=== PATIENT | female | born 1995 | race Caucasian/White ===

== ENCOUNTER 2017-11-30 17:00 | Inpatient (IN) | payer BC ==
[2017-11-30 18:12] VITALS: BMI 29.2
[2017-11-30 18:52] LABS: BASO % 0.8 % (0-2.0); EOS % 0.6 % (0-4.5); HEMATOCRIT 24.8 % (32.4-45.2); HEMOGLOBIN 8.1 GM/dL (10.7-15.3); LYMPH % 19.6 % (8-40); MCH 22.1 pg (25.7-33.7); MCHC 32.7 g/dl (32.0-36.0); MEAN CELL VOLUME 67.5 fl (80-96); MEAN PLT VOLUME 8.3 fl (7.5-11.1); MONO % 6.6 % (3.8-10.2); NEUT % 72.4 % (42.8-82.8); PLATELET COUNT 328 K/MM3 (134-434); RBC 3.67 M/mm3 (3.60-5.2); RDW 17.6 % (11.6-15.6); WHITE BLOOD COUNT 9.3 K/mm3 (4.0-10.0)
[2017-11-30 19:09] LABS: INR 0.96 (0.82-1.09); PROTHROMBIN TIME (PATIENT) 10.9 SEC (9.7-13.0)
[2017-11-30 19:12] LABS: ACTIVATED PTT 24.2 SECONDS (25.2-36.5)
[2017-11-30 19:32] LABS: ANION GAP 9 (8-16); BLOOD UREA NITROGEN 7 mg/dL (7-18); CALCIUM 8.5 mg/dL (8.5-10.1); CHLORIDE 109 mmol/L (98-107); CO2 24 mmol/L (21-32); CREATININE 0.4 mg/dL (0.55-1.02); GLUCOSE,RANDOM 95 mg/dL (74-106); POTASSIUM 3.9 mmol/L (3.5-5.1); SODIUM 142 mmol/L (136-145)
[2017-11-30] MEDS: DEXTROSE 5%-LACTATED RINGERS 1,000 ML IV SCH (20:15)
--- NOTE | 2017-11-30 20:20 | HP ---
Admitting History and Physical - Admission Chief Complaint: Labor pain History of Present Illness: 22 yo @ 39 weeks gestation, EDC 12/03/17, presents to L&D c/o labor pain. Upon admission she was 1cm dilated. Decision made for induction of labor with Cervidil. History Source: Patient Limitations to Obtaining History: No Limitations - Past Medical History ...: Yes ...: 3 ...Para: 1 - Past Surgical History Past Surgical History: Yes: None - Smoking History Smoking history: Never smoked Have you smoked in the past 12 months: No - Alcohol/Substance Use Hx Alcohol Use: No History of Substance Use: reports: None - Social History ADL: Independent History of Recent Travel: No Home Medications - Allergies Allergies/Adverse Reactions: Allergies Allergy/AdvReac Type Severity Reaction Status Date / Time No Known Allergies Allergy Verified 11/30/17 01:52 - Home Medications Home Medications: Ambulatory Orders Vit No.130/Iron/Folic [ Tablet] 1 each PO DAILY 07/27/14 Family Disease History - Family Disease History Family History: Unremarkable Review of Systems - Review of Systems Constitutional: reports: No Symptoms Eyes: reports: No Symptoms HENT: reports: No Symptoms Neck: reports: No Symptoms Cardiovascular: reports: No Symptoms Respiratory: reports: No Symptoms Gastrointestinal: reports: No Symptoms Genitourinary: reports: Pain Breasts: reports: No Symptoms Reported Musculoskeletal: reports: No Symptoms Neurological: reports: No Symptoms Endocrine: reports: No Symptoms Psychiatric: reports: No Symptoms Pain Intensity: 3 Physical Examination Vital Signs: Vital Signs Temperature 98.2 F 11/30/17 19:45 Pulse Rate 87 11/30/17 19:45 Respiratory Rate 20 11/30/17 19:45 Blood Pressure 102/61 11/30/17 19:45 O2 Sat by Pulse Oximetry (%) Constitutional: Yes: Well Nourished Eyes: Yes: Conjunctiva Clear HENT: Yes: Atraumatic Neck: Yes: Supple Cardiovascular: Yes: Regular Rate and Rhythm Respiratory: Yes: Regular Gastrointestinal: Yes: Normal Bowel Sounds Musculoskeletal: Yes: WNL Neurological: Yes: Alert, Oriented ...Motor Strength: WNL Psychiatric: Yes: Alert, Oriented Labs: CBC, BMP 11/30/17 18:28 11/30/17 18:28 Problem List - Problems (1) 39 weeks gestation of Code(s): Z3A.39 - 39 WEEKS GESTATION OF Assessment/Plan 39 weeks gestation Labor pain Umbilical hernia Admit to L&D Cervidil induction
[2017-11-30] MEDS ORDERED: DINOPROSTONE 10 MG VAGINAL SUPPOSITORY VG ONE (21:00)
[2017-12-01] MEDS: DEXTROSE 5%-LACTATED RINGERS 1,000 ML IV SCH ×2 (04:00→22:51)
--- NOTE | 2017-12-01 10:42 | PN ---
Progress Note (short form) - Note Progress Note: Patient seen and evaluated, she c/o mild discomfort. FHR : Reassuring [place] : Irregular contractions VE : 2 /60/ -2 Intact A/P : Status post cervidil induction Start Pitocin Analgesia as needed Problem List - Problems (1) 39 weeks gestation of Code(s): Z3A.39 - 39 WEEKS GESTATION OF
[2017-12-01] MEDS ORDERED: OXYTOCIN 30 UNITS in 0.9% NS 30 UNIT/500 ML INFUS.BAG IVPB SCH (10:45)
[2017-12-01] MEDS ORDERED: BUTORPHANOL TARTRATE 1 MG/ML VIAL IVPUSH PRN (10:46)
[2017-12-01] MEDS: ELECTROLYTE-148 SOLN 1,000 ML IV SCH ×2 (19:00→22:52)
[2017-12-01] MEDS ORDERED: BUPIVACAINE HCL/PF 0.25% (2.5MG/ML) 10 ML VIAL ONE (19:19)
[2017-12-01] MEDS ORDERED: NALOXONE HCL 0.4 MG/ML VIAL IVPUSH PRN (19:42)
[2017-12-01] MEDS ORDERED: FENTANYL/BUPIVACAINE/NS/PF - PCEA - 50 ML DISP.SYRIN EP SCH (19:45)
[2017-12-01] MEDS ORDERED: LIDOCAINE HCL 1% PRESERVATIVE FREE - 30ML VIAL ONE (21:09)
[2017-12-01] MEDS ORDERED: OXYTOCIN 20 UNITS in 0.9% NS 20 UNIT/1,000 ML INFUS.BAG IV ONE (21:09)
[2017-12-01] MEDS ORDERED: BISACODYL 10 MG SUPP.RECT RC PRN (22:22)
[2017-12-01] MEDS ORDERED: WITCH HAZEL 50% (TUCKS) 40 PAD/JAR PAD TP PRN (22:22)
[2017-12-01] MEDS ORDERED: METHYLERGONOVINE MALEATE 0.2 MG/1 ML AMP IM PRN (22:22)
[2017-12-01] MEDS ORDERED: BENZOCAINE 28 GM HEMORRHOIDAL OINTMENT TP PRN (22:22)
[2017-12-01] MEDS ORDERED: BENZOCAINE 20% 57 GM BOTTLE TP PRN (22:22)
--- NOTE | 2017-12-01 22:25 | PN ---
Delivery - Delivery Vaginal Delivery: Spontaneous Type of Anesthesia: Epidural Episiotomy/Laceration: 1st degree EBL (cc): 250 Delivery, Single - [place] Feeding Plan Initial Plan: Exclusive throughout hospitalization Remarks - Remarks Remarks: Normal spontaneous vaginal delivery of a live girl over first degree laceration. Nose / Oropharynx suctioned @ perineum. Cord clamped and cut. Placenta expelled spontaneously intact. Laceration repaired with 2.0 Biosyn. Mother in stable condition.
[2017-12-01] MEDS ORDERED: OXYTOCIN 20 UNITS in 0.9% NS 20 UNIT/1,000 ML INFUS.BAG IV SCH (22:30)
[2017-12-02] MEDS: IBUPROFEN 600 MG TABLET (FP) PO PRN ×3 (06:23→20:56)
[2017-12-02] MEDS: ACETAMINOPHEN 325 MG TABLET (FP) PO PRN ×3 (06:23→20:55)
[2017-12-02 07:33] LABS: BASO % 0.2 % (0-2.0); EOS % 0.4 % (0-4.5); HEMATOCRIT 26.6 % (32.4-45.2); HEMOGLOBIN 8.7 GM/dL (10.7-15.3); LYMPH % 16.9 % (8-40); MCH 21.8 pg (25.7-33.7); MCHC 32.6 g/dl (32.0-36.0); MEAN CELL VOLUME 66.9 fl (80-96); MONO % 7.8 % (3.8-10.2); NEUT % 74.7 % (42.8-82.8); PLATELET COUNT 256 K/MM3 (134-434); RBC 3.98 M/mm3 (3.60-5.2); RDW 17.4 % (11.6-15.6); WHITE BLOOD COUNT 12.1 K/mm3 (4.0-10.0)
[2017-12-02] MEDS: FERROUS SO4 325 MG TABLET (FP) PO SCH ×2 (09:13→21:03)
[2017-12-02] MEDS: PRENATAL VITAMINS W/ FOLIC ACID TABLET (FP) PO SCH (09:13)
[2017-12-02 09:53] LABS: ANISOCYTOSIS 1+; MACROCYTOSIS 1+; OVALOCYTE 1+
--- NOTE | 2017-12-02 15:36 | PN ---
Post Progress Note - Subjective Subjective: 22 yo Para 2 status post vaginal delivery, seen and evaluated. Doing well. Post Day: 1 Type of Delivery: Vital Signs: Vital Signs Temperature 98.4 F 12/02/17 14:00 Pulse Rate 70 12/02/17 14:00 Respiratory Rate 20 12/02/17 14:00 Blood Pressure 100/52 12/02/17 14:00 O2 Sat by Pulse Oximetry (%) 100 12/01/17 23:15 Breast Exam: Yes: Soft Uterus: Yes: Fundus Firm Abdomen/GI: Yes: Abdomen soft Lochia: Yes: Rubra Lochia, amount: Moderate Extremities: Yes: Calves non-tender Perineum: Yes: Laceration (Healing) Activity: Ambulating - Labs Labs: CBC WBC 12.1 K/mm3 (4.0-10.0) H 12/02/17 07:00 RBC 3.98 M/mm3 (3.60-5.2) 12/02/17 07:00 Hgb 8.7 GM/dL (10.7-15.3) L 12/02/17 07:00 Hct 26.6 % (32.4-45.2) L 12/02/17 07:00 MCV 66.9 fl (80-96) L 12/02/17 07:00 MCH 21.8 pg (25.7-33.7) L 12/02/17 07:00 MCHC 32.6 g/dl (32.0-36.0) 12/02/17 07:00 RDW 17.4 % (11.6-15.6) H 12/02/17 07:00 Plt Count 256 K/MM3 (134-434) D 12/02/17 07:00 MPV 8.0 fl (7.5-11.1) 12/02/17 07:00 Absolute Neuts (auto) 9.0 # 12/02/17 07:00 Neutrophils % 74.7 % (42.8-82.8) 12/02/17 07:00 Lymphocytes % 16.9 % (8-40) 12/02/17 07:00 Monocytes % 7.8 % (3.8-10.2) 12/02/17 07:00 Eosinophils % 0.4 % (0-4.5) 12/02/17 07:00 Basophils % 0.2 % (0-2.0) 12/02/17 07:00 Nucleated RBC % 0 % (0-0) 12/02/17 07:00 Anisocytosis 1+ 12/02/17 07:00 Microcytosis 1+ 12/02/17 07:00 Macrocytosis 1+ 12/02/17 07:00 Ovalocytes 1+ 12/02/17 07:00 Problem List - Problems (1) 39 weeks gestation of Code(s): Z3A.39 - 39 WEEKS GESTATION OF (2) Status post vaginal delivery Code(s): DHC2057 - Assessment/Plan Status post vaginal delivery Stable Continue routine care
[2017-12-02] MEDS ORDERED: SENNOSIDES/DOCUSATE COMBO (SENNA PLUS) TABLET (UD) PO PRN (22:00)
--- NOTE | 2017-12-03 08:00 | DS ---
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: Vital Signs Temperature 97.8 F 12/02/17 20:52 Pulse Rate 74 12/02/17 20:52 Respiratory Rate 20 12/02/17 20:52 Blood Pressure 106/48 12/02/17 20:52 O2 Sat by Pulse Oximetry (%) 100 12/01/17 23:15 Constitutional: Yes: Well Nourished Eyes: Yes: Conjunctiva Clear HENT: Yes: Atraumatic Neck: Yes: Supple Cardiovascular: Yes: Regular Rate and Rhythm Respiratory: Yes: Regular Gastrointestinal: Yes: Normal Bowel Sounds External Genitalia: Yes: Normal Vaginal Exam: Yes: Normal Cervix: Yes: Normal Uterus: Yes: Firm Breast(s): Yes: WNL Musculoskeletal: Yes: WNL Extremities: Yes: WNL Neurological: Yes: Alert, Oriented ...Motor Strength: WNL Psychiatric: Yes: Alert, Oriented Labs: CBC, BMP 12/02/17 07:00 11/30/17 18:28 Delivery - Delivery Vaginal Delivery: Spontaneous Type of Anesthesia: Epidural Episiotomy/Laceration: Vaginal Extension/lac, 1st degree EBL (cc): 250 Delivery, Single - Stages of Labor Date 1st Stage Initiatied: 12/01/17 Time 1st Stage Initiated: 19:00 Date 2nd Stage Initiated: 12/01/17 Time 2nd Stage Initiated: 21:10 Date of Delivery: 12/01/17 Time of Delivery: 22:02 Time Placenta Delivered: 22:10 - Condition of Director 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 F/U in office in 6 weeks. Disposition: HOME - Home Medications Comprehensive Discharge Medication List: Ambulatory Orders Vit No.130/Iron/Folic [ Tablet] 1 each PO DAILY 07/27/14
[2017-12-03 08:11] VITALS: BP 108/61; PULSE 72; TEMP 98.4
[2017-12-03] MEDS: FERROUS SO4 325 MG TABLET (FP) PO SCH (09:14)
[2017-12-03] MEDS: PRENATAL VITAMINS W/ FOLIC ACID TABLET (FP) PO SCH (09:14)
[2017-12-03] MEDS: ACETAMINOPHEN 325 MG TABLET (FP) PO PRN (09:15)
[2017-12-03] MEDS: IBUPROFEN 600 MG TABLET (FP) PO PRN (09:15)
[2017-12-03] MEDS ORDERED: DIPHTH,PERTUSS(ACELL),TET 0.5 ML DISP.SYRIN IM ONE (10:00)
== END 2017-12-03 11:50 | disposition home or self-care (01) | DRG 775 ==
LOC: JLDR 17:00 → J3W 12-01 23:29
PROVIDERS: ADMIT Obstetrics & Gynecology; ATTEND Obstetrics & Gynecology
PROC: 10E0XZZ Delivery of Products of Conception, External Approach (ICD-10-PCS; principal; 2017-12-01)
PROC: 0HQ9XZZ Repair Perineum Skin, External Approach (ICD-10-PCS; 2017-12-01)
DX: O75.89 Other specified complications of labor and delivery (principal); O70.0 First degree perineal laceration during delivery; K42.9 Umbilical hernia without obstruction or gangrene; Z3A.39 39 weeks gestation of pregnancy; Z37.0 Single live birth
CPT/HCPCS: 36415; 59409; 80048; 85025; 85610; 85730; 86593; 86850; 86900; 86901; 90715

== ENCOUNTER 2019-06-01 04:33 | Emergency (ER) | payer BC, OTHER ==
[2019-06-01 05:21] VITALS: BP 105/70; PULSE 96; TEMP 97.2; BMI 24.3
--- NOTE | 2019-06-01 07:20 | PDOC ---
History of Present Illness - General Chief Complaint: Injury Stated Complaint: LEFT ARM PAIN Time Seen by Provider: 06/01/19 07:19 - History of Present Illness Initial Comments: 23 year old female with no PMH presenting with left elbow pain and swelling after tripping and falling onto her elbow when playing with her niece. States that she was trying to move around her niece and tripped over her own feet. Denies any other trauma besides her elbow. No fevers, chills, nausea, vomiting, diarrhea, or other symptoms. 06/01/19 08:28 Past History - Past Medical History Allergies/Adverse Reactions: Allergies Allergy/AdvReac Type Severity Reaction Status Date / Time No Known Allergies Allergy Verified 11/30/17 01:52 Home Medications: Ambulatory Orders Vit No.130/Iron/Folic [ Tablet] 1 each PO DAILY 07/27/14 Asthma: No Cancer: No Cardiac Disorders: No COPD: No Diabetes: No HTN: No Seizures: No Thyroid Disease: No - Psycho Social/Smoking Cessation Hx Smoking History: Never smoked Have you smoked in the past 12 months: No Hx Alcohol Use: No Drug/Substance Use Hx: No Hx Substance Use Treatment: No Review of Systems - Review of Systems Able to Perform ROS?: Yes Is the patient limited Romanian proficient: No Constitutional: No: Chills, Diaphoresis, Fever, Loss of Appetite HEENTM: No: Blurred Vision, Tearing Respiratory: No: Cough, Shortness of Breath, Productive cough Cardiac (ROS): No: Chest Pain, Lightheadedness, Palpitations, Syncope ABD/GI: No: Diarrhea, Nausea, Vomiting : No: Dysuria, Discharge, Frequency Musculoskeletal: Yes: Joint Pain, Joint Swelling. No: Back Pain, Neck Pain Integumentary: Yes: Lumps. No: Bruising, Lesions Neurological: No: Headache, Numbness, Paresthesia *Physical Exam - Vital Signs Last Vital Signs Temp Pulse Resp BP Pulse Ox 97.2 F L 96 H 18 105/70 98 06/01/19 05:05 06/01/19 05:05 06/01/19 05:05 06/01/19 05:05 06/01/19 05:05 - Physical Exam General Appearance: Yes: Nourished, Appropriately Dressed. No: Apparent Distress HEENT: positive: EOMI, INDERJIT, Normal ENT Inspection, Normal Voice Neck: positive: Trachea midline, Normal Thyroid, Supple. negative: Tender, Rigid Respiratory/Chest: positive: Lungs Clear, Normal Breath Sounds. negative: Chest Tender, Respiratory Distress, Accessory Muscle Use Cardiovascular: positive: Regular Rhythm, Regular Rate Gastrointestinal/Abdominal: positive: Normal Bowel Sounds, Flat, Soft. negative : Tender Lymphatic: negative: Adenopathy, Tenderness Musculoskeletal: positive: Normal Inspection. negative: Decreased Range of Motion Extremity: positive: Normal Capillary Refill, Tender. 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 Elbow Xray demonstrating non-displaced radial head fracture. Patient placed in sling, given Motrin 600 mg and eloped prior to giving discharge instructions. Dr. Henao did call and speak to the patient personally, however. 06/01/19 08:47 Discharge - Discharge Information Problems reviewed: Yes Clinical Impression/Diagnosis: Radial head fracture, closed Qualifiers: Encounter type: initial encounter Fracture alignment: nondisplaced Laterality: left Qualified Code(s): S52.125A - Nondisplaced fracture of head of left radius , initial encounter for closed fracture Condition: Stable Disposition: ELOPED - Admission No - Follow up/Referral Referrals: Darien Wsahington MD [Staff Physician] - - Patient Discharge Instructions Patient Printed Discharge Instructions: How to Use a Sling Additional Instructions: Please use the sling until you see the orthopedic surgeon and discuss further management. Please use Tylenol 500mg or Motrin 600mg for the pain every 6 hours. Please call the orthopedic surgeon today and make an appointment with them. Let them know that you had a radial head fracture and that you need to schedule follow up. Please follow up with your PCP as needed. Please return to the ED if you have new or worsening symptoms. - Post Discharge Activity
[2019-06-01] MEDS ORDERED: IBUPROFEN 600 MG TABLET (FP) PO ONE ×3 (07:42→07:58)
--- NOTE | 2019-06-01 08:04 | PDOC ---
Attending Attestation - Resident Resident Name: Cris Wilson - ED Attending Attestation I have performed the following: I have examined & evaluated the patient, The case was reviewed & discussed with the resident, I agree w/resident's findings & plan, Exceptions are as noted - HPI HPI: 06/01/19 09:02 Pt. eloped before my evaluation - Physicial Exam PE: 06/01/19 09:02 Pt. 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 I provided the patient with verbal instructions regarding ice pain management sling instructions as well as orthopedic follow-up which was she will call for today. She has my phone number as contact she will call me for any questions return to the ED for any concerns she will follow-up with orthopedics this week Findings, need for follow-up and strict return instructions discussed with patient.
== END 2019-06-01 08:45 | disposition left against medical advice (07) ==
LOC: JER 04:33
DX: S52.125A Nondisplaced fracture of head of left radius, initial encounter for closed fracture (principal); W01.0XXA Fall on same level from slipping, tripping and stumbling without subsequent striking against object, initial encounter; Y93.83 Activity, rough housing and horseplay; Y92.018 Other place in single-family (private) house as the place of occurrence of the external cause; Y99.8 Other external cause status
CPT/HCPCS: 73070-TC-LT-FY; 99283-25